=== PATIENT | male | born 1985 | race Caucasian/White ===

== ENCOUNTER → 2017-08-14 | Outpatient (CLI) | payer BC ==
--- NOTE | 2017-08-14 09:45 | Diagnostic Imaging Report ---
PROCEDURE: US Gallbladder. TECHNIQUE: Multiple real-time grayscale images were obtained over the right upper quadrant in various projections. INDICATION: Right upper quadrant abdominal pain Liver is prominent measuring 21 cm in length without evidence of focal hepatic lesion or biliary ductal dilatation. There is an approximately 0.6 cm filling defect within the lumen of the gallbladder without associated shadowing. This may represent polyp. Bowel gas limits evaluation of the extrahepatic biliary tree and pancreas. Right kidney demonstrates no abnormality and there is no evidence of free fluid. IMPRESSION: Mild hepatomegaly with 0.6 cm filling defect within the gallbladder lumen which may represent a polyp. Otherwise no abnormality seen on limited exam. Dictated by: Dictated on workstation # [id number]
== END ==
LOC: RAD 07:43
PROVIDERS: ATTEND Nurse Practitioner
DX: R16.0 Hepatomegaly, not elsewhere classified (principal); R10.11 Right upper quadrant pain
CPT/HCPCS: 76705

== ENCOUNTER 2017-08-23 05:30 | Outpatient (CLI) | payer BC ==
[~2017-08-23] VITALS: Ht 182.9 cm; Wt 133.8 kg
[2017-08-23] MEDS ORDERED: OMEG100032 PO (12:55)
[2017-08-23] MEDS ORDERED: SIMV20TA3 PO (12:55)
[2017-08-24] MEDS ORDERED: ACHD5005 PO (12:55)
[2017-08-24] MEDS ORDERED: DOCU-143 PO (12:55)
== END 2017-08-23 13:00 ==
LOC: PREOP 05:30
PROVIDERS: ATTEND Surgery
DX: Z01.818 Encounter for other preprocedural examination (principal); K82.4 Cholesterolosis of gallbladder; R10.11 Right upper quadrant pain

== ENCOUNTER 2017-08-24 09:08 | Day surgery (SDC) | payer BC ==
[~2017-08-24] VITALS: Ht 182.9 cm; Wt 133.8 kg
[~2017-08-24 09:08] MED LIST: OMEG100032 PO; SIMV20TA3 PO
--- OUTSIDE RECORDS SUMMARY | 2017-08-24 09:13 | XMS REPORT | Continuity of Care Document ---
Author Author [facility] Organization [facility] Address Unknown Phone Unavailable Allergies Active Description Code Type Severity Reaction Onset Reported/Identified Relationship to Patient Clinical Status Yes No Known Drug Allergies [id number] Drug Allergy Unknown N/A 05/10/2013 Medications There is no data. Problems Date Dx Coded Attending Type Code Diagnosis Diagnosed By 08/15/2017 MILADIS SALINAS Ot R10.11 RIGHT UPPER QUADRANT PAIN 08/15/2017 MILADIS SALINAS Ot R16.0 HEPATOMEGALY, NOT ELSEWHERE CLASSIFIED Procedures There is no data. Results There is no data. Encounters ACCT No. Visit Date/Time Discharge Status Pt. Type Provider Facility Loc./Unit Complaint [id number] 08/14/2017 07:43:00 08/14/2017 23:59:59 CLS Outpatient MILADIS SALINAS [facility] RAD RUQ PAIN [id number] 05/10/2013 21:06:00 05/10/2013 21:50:00 DIS Emergency
[2017-08-24 09:30] VITALS: BP 163/86
[2017-08-24] MEDS ORDERED: CATHETER FLUSH 10 ML SYR IV PRN (09:30)
[2017-08-24] MEDS ORDERED: ceFAZolin 2 GM/NS 50 ML IV ONE (09:30)
[2017-08-24] MEDS ORDERED: ceFAZolin 2 GM/50 ML NS 50 ML IV ONE (09:45)
[2017-08-24] MEDS: LACTATED RINGERS 1,000 ML IV PRN ×2 (09:47→11:35)
[2017-08-24] MEDS ORDERED: LIDOCAINE 1% INJ 20 ML (XYLOCAINE) VIAL ONE ×2 (09:57→11:06)
[2017-08-24] MEDS ORDERED: BUPIVACAINE 0.5% 30 ML (SENSORCAINE) VIAL ONE ×2 (09:58→11:06)
[2017-08-24] MEDS ORDERED: LACTATED RINGERS 1,000 ML IV PRN (10:12)
[2017-08-24] MEDS ORDERED: MIDAZOLAM 2 MG/2 ML (VERSED) VIAL IV ONE (10:15)
[2017-08-24] MEDS ORDERED: MIDAZOLAM 2 MG/2 ML (VERSED) VIAL ONE ×2 (10:18→10:42)
[2017-08-24] MEDS ORDERED: DEXAMETHASONE 10 MG/ML (DECADRON) 1 ML VIAL ONE (10:42)
[2017-08-24] MEDS ORDERED: fentaNYL INJECTION 100 MCG/2 ML AMP ONE ×3 (10:42→11:54)
[2017-08-24] MEDS ORDERED: ROCURONIUM 50 MG/5 ML (ZEMURON) VIAL IV ONE (10:42)
[2017-08-24] MEDS ORDERED: ONDANSETRON 4 MG/2 ML (SDV) Z0FRAN ONE ×2 (10:42→12:21)
[2017-08-24] MEDS ORDERED: LIDOCAINE PF 2% 5 ML (XYLOCAINE) VIAL ONE (10:42)
[2017-08-24] MEDS ORDERED: SUCCINYLCHOLINE INJ 100 MG/5 ML SYR ONE (10:42)
[2017-08-24] MEDS ORDERED: proPOfol 200 MG/20 ML (DIPRIVAN) VIAL IV ONE ×2 (10:42→12:35)
[2017-08-24] MEDS ORDERED: SEVOFLURANE (ULTANE) 15 ML INHAL SOLN ONE ×8 (10:42→13:44)
--- NOTE | 2017-08-24 10:57 | Progress Note-Pre Operative ---
Pre-Operative Progress Note H&P Reviewed The H&P was reviewed, patient examined and no changes noted. Date Seen by Provider: Aug 24, 2017 Time Seen by Provider: 10:56 Date H&P Reviewed: Aug 24, 2017 Time H&P Reviewed: 10:56 Pre-Operative Diagnosis: gallbladder polyp JABARI NEWTON DO Aug 24, 2017 10:57
[2017-08-24] MEDS ORDERED: HYDROmorphone (DILAUDID) 2 MG/ML VIAL ONE (12:21)
[2017-08-24] MEDS ORDERED: morphine INJ 10 MG/ML 1ML (SYR OR VIAL) ONE (12:21)
--- NOTE | 2017-08-24 12:53 | Progress Note-Post Operative ---
Post-Operative Progess Note Surgeon (s)/Lock Master (s) Surgeon JABARI NEWTON DO Lock Master: Dr. Benavides Pre-Operative Diagnosis gallbladder polyp Post-Operative Diagnosis same Procedure & Operative Findings Date of Procedure 08/24/17 Procedure Performed/Findings lap desi c ioc Anesthesia Type general Estimated Blood Loss Estimated blood loss (mL): min Specimens/Packing Specimens Removed gallbladder JABARI NEWTON DO Aug 24, 2017 12:53
[2017-08-24] MEDS ORDERED: ACHD5005 PO (12:55)
[2017-08-24] MEDS ORDERED: DOCU-143 PO (12:55)
--- NOTE | 2017-08-24 12:55 | Diagnostic Imaging Report ---
INDICATION: Fluoroscopy. EXAM: Intraoperative cholangiogram. FINDINGS: Fluoroscopy was provided in the OR for intraoperative cholangiogram. Nine seconds of fluoroscopy time was utilized. Images demonstrate contrast being injected via the cystic duct remnant. The intrahepatic and extrahepatic bile ducts are normal caliber. No filling defect is seen to suggest stone. Contrast does flow into the duodenum. IMPRESSION: Fluoroscopy for intraoperative cholangiogram. Dictated by: Dictated on workstation # [id number]
--- NOTE | 2017-08-24 12:57 | Discharge Inst-Simple/Standard ---
Discharge Inst-Standard Discharge Medications New, Converted or Re-Newed RX: RX on Chart Patient Instructions/Follow Up Plan of Care/Instructions/FU: 2 weeks Jaymie Activity as Tolerated: No Discharge Diet: Regular Diet Other Inst to Patient Follow up Appt: Make appointment for 2 weeks. Instructions: No lifting greater than 10 pounds. No strenuous activity. May shower in 24 hours, no tub bath or soaking. Use incentive spirometer at home as directed. No Smoking Skin/Wound Care: You have special glue over incisions, it will fall off on its own. Symptoms to Report: Appetite Changes, Extremity Discoloration, Numbness/Tingling, Swelling Increased , Bleeding Excessive, Eyesight Changes, Pain Increased, Urine Color Change, Constipation(Persistent), Fever over 101 degree F, Pain/Pressure in chest, Urinating Difficulty, Cough Up/Vomit Blood, Heart Beat Irreg/Pounding, Pain/ Pressure in jaw, Vaginal Bleeding Increase, Cramps in feet or legs, Lightheadedness, Pain/Pressure in shoulder, Diarrhea(Persistent), Memory Changes Suddenly, Questions/Concerns, Weight gain consecutive days, Dizziness/ Fainting, Nausea/Vomiting, Shortness of Breath, Weight gain over 2 pounds. If eyes or skin turn yellow notify physician. If questions or concerns contact your physician Or seek help at emergency department. JABARI NEWTON DO Aug 24, 2017 12:57
[2017-08-24] MEDS ORDERED: HYDROcodone/APAP 5 MG/325 MG (LORTAB) TAB PO PRN ×2 (13:00→15:00)
[2017-08-24] MEDS ORDERED: ONDANSETRON 4 MG/2 ML (SDV) Z0FRAN IVP PRN (13:30)
[2017-08-24] MEDS ORDERED: HYDROmorphone (DILAUDID) 2 MG/ML VIAL IVP PRN (13:30)
[2017-08-24] MEDS ORDERED: morphine INJ 10 MG/ML 1ML (SYR OR VIAL) IVP PRN (13:30)
[2017-08-24] MEDS ORDERED: RT-ALBUTEROL SULF 2.5 MG/3 ML PRE-MIX VIAL INH STA (13:42)
[2017-08-24 14:30] VITALS: BP 185/87
[2017-08-24 15:00] VITALS: BP 162/84
[2017-08-24 15:29] VITALS: BP 167/80
[2017-08-24 16:00] VITALS: BP 159/105
--- NOTE | 2017-08-24 22:09 | OPERATIVE REPORT ---
DATE OF SERVICE: 08/24/2017 PREOPERATIVE DIAGNOSIS: Gallbladder polyp. POSTOPERATIVE DIAGNOSIS: Gallbladder polyp. PROCEDURES: Laparoscopic cholecystectomy with intraoperative cholangiogram. SURGEON: Jabari Coon DO. COAL PICKER: Dr. Benavides assisted in retraction, dissection and closure. ANESTHESIA: General. ESTIMATED BLOOD LOSS: Minimal. COMPLICATIONS: None. INDICATIONS: The patient is a 32-year-old male who has been having right upper quadrant abdominal pain. He was explained risks and benefits of procedure and wished to proceed with procedure. Consent was signed in the chart. PROCEDURE: The patient was taken to the operating suite, was prepped and draped in sterile fashion. Surgical pause was performed. Kaltyn technique was used to enter the abdomen just above the umbilicus. A 0 Vicryl suture was placed in a [id number]-gp-[id number] fashion on the fascia. The trocar with a balloon was inserted in the abdomen and pneumoperitoneum was achieved. The gallbladder was located. It was extremely intrahepatic and also the falciform ligament went in partially surrounding the fundus of the gallbladder. Under direct visualization laparoscope, a 5 mm trocar was placed in the subxiphoid region and two 5 mm trocars were placed in the right upper quadrant. Hook cautery was used to try to mobilize the fundus of the gallbladder. Once this was performed, the gallbladder was begun to be elevated. There are multiple adhesions of omentum up against the gallbladder, which then were bluntly taken down. Once the neck of the gallbladder was identified, the cystic artery and cystic duct were then dissected out. Clips were placed on the proximal and distal portion of the cystic artery and this was then transected. This opened up the view of the cystic duct, which was unable to be dissected around. A clip was placed on the distal portion of the cystic duct and the duct was then partially transected and an arrow catheter was inserted and cholangiogram was then performed. There were no filling defects and contrast made its way into the duodenum. On opening the duct, there was also small stone that did come out from the duct . Clips were placed on the proximal portion of the cystic duct and the duct was then transected. Hook cautery was used to dissect the gallbladder from the gallbladder fossa again noting the gallbladder was extremely intrahepatic. Once removed, the gallbladder was placed in an Endobag and removed through the 12 mm trocar site. Copious amount of irrigation was used to irrigate the abdomen. There was a little slight ooze from the gallbladder fossa. Therefore, Surgicel was placed within the gallbladder fossa. Copious amounts of irrigation were used to irrigate the abdomen. The abdomen was then desufflated, the trocars were removed. The 12 mm fascial defect was closed with the 0 Vicryl sutures placed in a caubcg-uq-zxhzh fashion before. The skin was then closed using a 4-0 Monocryl. The area was then washed and dried. Dermabond was placed over the incisions. The patient tolerated the procedure well without any complications and was taken to the recovery room in stable condition. Job ID: [id number] DocumentID: [id number] Dictated Date: 08/24/2017 14:53:45 Metallurgical Specialist Date: 08/24/2017 22:08:31 Dictated By: JABARI COON DO
== END 2017-08-24 16:10 | disposition home or self-care (01) ==
LOC: SDC 09:08
PROVIDERS: ATTEND Surgery
DX: K81.1 Chronic cholecystitis (principal); D13.5 Benign neoplasm of extrahepatic bile ducts; E78.5 Hyperlipidemia, unspecified; F17.210 Nicotine dependence, cigarettes, uncomplicated; E66.01 Morbid (severe) obesity due to excess calories; Z68.41 Body mass index [BMI] 40.0-44.9, adult; Z79.899 Other long term (current) drug therapy
CPT/HCPCS: 87081; 94664

== ENCOUNTER 2018-07-10 11:17 | Outpatient (CLI) | payer BC ==
[~2018-07-10] VITALS: Ht 182.9 cm; Wt 124.7 kg
[~2018-07-10 11:17] MED LIST changes: +ACHD5005 PO; +DOCU-143 PO
[2018-07-12] MEDS ORDERED: ACHD5005 PO (09:12)
[2018-07-12] MEDS ORDERED: DOCU-143 PO (09:12)
== END 2018-07-10 11:33 ==
LOC: PREOP 11:17
PROVIDERS: ATTEND Surgery
DX: Z01.818 Encounter for other preprocedural examination (principal)

== ENCOUNTER 2018-07-12 05:51 | Day surgery (SDC) | payer BC ==
[~2018-07-12] VITALS: Ht 182.9 cm; Wt 125.3 kg
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
--- OUTSIDE RECORDS SUMMARY | 2018-07-12 05:54 | XMS REPORT | Continuity of Care Document ---
Author Author [facility] Organization [facility] Address Unknown Phone Unavailable Care Team Providers Care Neuro Ophthalmologist Name Role Phone NO, LOCAL PHYSICIAN PP Unavailable Insurance Providers Payer Name Policy Number Subscriber Name Relationship Unknown Ciera Morse Advance Directives Directive Response Recorded Date Advance Directives N 05/10/13 9:22pm Problems No Known Problems or Medical conditions. Social History History Response Recorded Date/Time Alcohol Use Occasionally Uses 05/10/13 9: 22pm Recreational Drug Use N 05/10/13 9:22pm Recent Foreign Travel N 05/10/13 9:22pm Allergies, Adverse Reactions, Alerts Allergen Type Severity Reaction Last Updated No Known Drug Allergies 05/10/13 Medications No known medications Response Recorded Date/Time Status not known Unknown Results No Known Relevant Diagnostic Tests, Laboratory Data and/or Discharge Summary. Encounters Encounter Location Date/Time Departed Emergency Room [facility] 9:06pm
[2018-07-12 06:15] VITALS: BP 146/87
[2018-07-12] MEDS ORDERED: ceFAZolin 2 GM IV Premixed 50 ML IV ONE (06:45)
[2018-07-12] MEDS ORDERED: MIDAZOLAM 2 MG/2 ML (VERSED) VIAL IV ONE (07:15)
[2018-07-12] MEDS: LACTATED RINGERS 1,000 ML IV PRN ×2 (07:20→09:22)
[2018-07-12] MEDS ORDERED: LIDOCAINE 1% INJ 20 ML 20 ML VIAL ONE (07:28)
[2018-07-12] MEDS ORDERED: BUPIVACAINE 0.5% 30 ML (SENSORCAINE) VIAL ONE ×2 (07:28→08:51)
[2018-07-12] MEDS ORDERED: fentaNYL INJECTION 100 MCG/2 ML AMP ONE ×2 (07:31→09:02)
[2018-07-12] MEDS ORDERED: MIDAZOLAM 2 MG/2 ML (VERSED) VIAL ONE (07:33)
[2018-07-12 07:37] LABS: BASOPHILS % (AUTO) 0 % (0-10); EOSINOPHILS # (AUTO) 0.3 10^3/uL (0.0-0.3); EOSINOPHILS % (AUTO) 2 % (0-10); HEMATOCRIT 43 % (40-54); HEMOGLOBIN 14.8 G/DL (13.3-17.7); LYMPHOCYTES # (AUTO) 3.1 X 10^3 (1.0-4.0); LYMPHOCYTES % (AUTO) 27 % (12-44); MEAN CORPUSCULAR HEMOGLOBIN 28 PG (25-34); MEAN CORPUSCULAR HGB CONC 34 G/DL (32-36); MEAN CORPUSCULAR VOLUME 80 FL (80-99); MONOCYTES # (AUTO) 0.8 X 10^3 (0.0-1.0); MONOCYTES % (AUTO) 7 % (0-12); NEUTROPHILS # (AUTO) 7.2 X 10^3 (1.8-7.8); NEUTROPHILS % (AUTO) 64 % (42-75); PLATELET COUNT 233 10^3/uL (130-400); RED BLOOD COUNT 5.37 10^6/uL (4.35-5.85); RED CELL DISTRIBUTION WIDTH 14.8 % (10.0-14.5); WHITE BLOOD COUNT 11.3 10^3/uL (4.3-11.0)
--- NOTE | 2018-07-12 07:50 | Progress Note-Pre Operative ---
Pre-Operative Progress Note H&P Reviewed The H&P was reviewed, patient examined and no changes noted. Date Seen by Provider: Jul 12, 2018 Time Seen by Provider: 07:50 Date H&P Reviewed: Jul 12, 2018 Time H&P Reviewed: 07:50 Pre-Operative Diagnosis: incisional hernia JABARI NEWTON DO Jul 12, 2018 07:50
[2018-07-12] MEDS ORDERED: ROCURONIUM 10 MG/ML 5 ML SYRINGE IV ONE (08:51)
[2018-07-12] MEDS ORDERED: LIDOCAINE PF 2% 5 ML (XYLOCAINE) VIAL ONE (08:51)
[2018-07-12] MEDS ORDERED: SUCCINYLCHOLINE INJ 100 MG/5 ML SYR ONE (08:51)
[2018-07-12] MEDS ORDERED: ONDANSETRON 4 MG/2 ML (SDV) Z0FRAN ONE (08:51)
[2018-07-12] MEDS ORDERED: DEXAMETHASONE 10 MG/ML (DECADRON) 1 ML VIAL ONE (08:51)
[2018-07-12] MEDS ORDERED: proPOfol 200 MG/20 ML (DIPRIVAN) VIAL IV ONE (08:51)
[2018-07-12] MEDS ORDERED: GLYCOPYRROLATE 0.2 MG/ML (ROBINUL) 2 ML VIAL ONE (09:00)
[2018-07-12] MEDS ORDERED: NEOSTIGMINE 1 MG/ML 5 ML SYRINGE ONE (09:00)
[2018-07-12] MEDS ORDERED: ACHD5005 PO (09:12)
[2018-07-12] MEDS ORDERED: DOCU-143 PO (09:12)
--- NOTE | 2018-07-12 09:12 | Progress Note-Post Operative ---
Post-Operative Progess Note Surgeon (s)/Top Lift Scourer (s) Surgeon JABARI NEWTON DO Top Lift Scourer: Dr. Benavides Pre-Operative Diagnosis incisional hernia Post-Operative Diagnosis incarcerated incisional hernia Procedure & Operative Findings Date of Procedure 07/12/18 Procedure Performed/Findings laparoscopic incisional hernia repair. Anesthesia Type gen Estimated Blood Loss Estimated blood loss (mL): min Specimens/Packing Specimens Removed na JABARI NEWTON DO Jul 12, 2018 09:12
--- NOTE | 2018-07-12 09:14 | Discharge Inst-Simple/Standard ---
Discharge Inst-Standard Discharge Medications New, Converted or Re-Newed RX: RX on Chart Patient Instructions/Follow Up Plan of Care/Instructions/FU: 3 weeks Coon Activity as Tolerated: No Discharge Diet: Regular Diet Other Inst to Patient Follow up Appt: Make appointment for 3 weeks. Instructions: No lifting greater than 10 pounds. No strenuous activity. May shower in 24 hours, no tub bath or soaking. Use incentive spirometer at home as directed. No Smoking Skin/Wound Care: You have special glue over incision, it will fall off on its own. Symptoms to Report: Appetite Changes, Extremity Discoloration, Numbness/Tingling, Swelling Increased , Bleeding Excessive, Eyesight Changes, Pain Increased, Urine Color Change, Constipation(Persistent), Fever over 101 degree F, Pain/Pressure in chest, Urinating Difficulty, Cough Up/Vomit Blood, Heart Beat Irreg/Pounding, Pain/ Pressure in jaw, Vaginal Bleeding Increase, Cramps in feet or legs, Lightheadedness, Pain/Pressure in shoulder, Diarrhea(Persistent), Memory Changes Suddenly, Questions/Concerns, Weight gain consecutive days, Dizziness/ Fainting, Nausea/Vomiting, Shortness of Breath, Weight gain over 2 pounds If questions or concerns contact your physician Or seek help at emergency department. JABARI COON DO Jul 12, 2018 09:14
[2018-07-12] MEDS ORDERED: morphine INJ 10 MG/ML 1ML (SYR OR VIAL) IVP ONE (09:45)
[2018-07-12] MEDS ORDERED: ONDANSETRON 4 MG/2 ML (SDV) Z0FRAN IVP PRN (09:45)
[2018-07-12] MEDS ORDERED: SEVOFLURANE (ULTANE) 15 ML INHAL SOLN ONE ×2 (09:50)
[2018-07-12 10:45] VITALS: BP 134/73
[2018-07-12 10:50] VITALS: BP 134/73
[2018-07-12 11:15] VITALS: BP 134/73
[2018-07-12] MEDS ORDERED: HYDROcodone/APAP 5 MG/325 MG (LORTAB) TAB PO PRN (11:15)
[2018-07-12 11:45] VITALS: BP 143/70
--- NOTE | 2018-07-12 12:58 | OPERATIVE REPORT ---
DATE OF SERVICE: 07/12/2018 PREOPERATIVE DIAGNOSIS: Incisional hernia. POSTOPERATIVE DIAGNOSIS: Incarcerated incisional hernia. PROCEDURE: Laparoscopic incarcerated incisional hernia repair. SURGEON: Jabari Coon DO CHANGE COORDINATOR: Dr. Benavides, assisted in retraction, dissection and closure. ANESTHESIA: General. ESTIMATED BLOOD LOSS: Minimal. COMPLICATIONS: None. INDICATIONS: The patient is a 33-year-old male with incisional hernia. He understands risks and benefits of procedure and wished to proceed with procedure. Consent was signed in the chart. DESCRIPTION OF PROCEDURE: The patient was taken to the operating suite, was prepped and draped in sterile fashion. Surgical pause was performed. Katlyn technique was used to enter the abdomen in left upper quadrant. A balloon trocar was inserted. Pneumoperitoneum was achieved. Under direct visualization of the laparoscope, a 5 mm trocar was placed in left lower quadrant and a 5 mm trocar was placed in the right lower quadrant. Hernia contents of omental fat stuck in through the incision. This was then began to be dissected down with both blunt and cautery scissors to take down the hernia contents. Once reduced, a stab incision was made over the defect and the defect was closed with an 0 Vicryl and Bipin-Terry. The patient then had an echo 4.5-inch Echo Ventralight mesh inserted in the abdomen and grasped through the stab incision and the balloon was deflated and an outer crown was made with a SecureStrap Tacker. The balloon was then removed and inner crown was made as well. Adequate coverage of the defect was present. Prior to inserting the mesh, the falciform ligament had to be partially taken down with a scissor cautery. The abdomen was then desufflated, the trocars were removed. The fascial defect of the 12 mm trocar site was closed with 0 Vicryl. The skin was then closed using 4-0 Monocryl. The area was then washed and dried and Skin Affix was placed over the incisions. The patient tolerated procedure well without any complications. He was sent to recovery room in stable condition. Job ID: [id number] DocumentID: [id number] Dictated Date: 07/12/2018 09:19:42 Manager Competitive Intelligence Date: 07/12/2018 12:58:19 Dictated By: JABARI COON DO
--- NOTE | 2018-07-12 15:02 | Anesthesia-General Post-Op ---
General Patient Condition Mental Status/LOC: Same as Preop Cardiovascular: Satisfactory Nausea/Vomiting: Absent Respiratory: Satisfactory Pain: Controlled Complications: Absent Post Op Complications Complications None Follow Up Care/Instructions Patient Instructions None needed. Anesthesia/Patient Condition Patient Condition Patient is doing well, no complaints, stable vital signs, no apparent adverse anesthesia problems. No complications reported per nursing. D/C home per [facility] Criteria: Yes GILBERT GREEN CRNA Jul 12, 2018 15:02
== END 2018-07-12 12:10 | disposition home or self-care (01) ==
LOC: SDC 05:51
PROVIDERS: ATTEND Surgery
DX: K43.0 Incisional hernia with obstruction, without gangrene (principal); E78.5 Hyperlipidemia, unspecified; F17.210 Nicotine dependence, cigarettes, uncomplicated; E66.9 Obesity, unspecified; Z68.37 Body mass index [BMI] 37.0-37.9, adult
CPT/HCPCS: 36415; 85025; 87081; 94664

== ENCOUNTER → 2022-04-11 | Outpatient (REF) ==
[~2022-04-11] MED LIST changes: +SIMV20TA26 PO; -SIMV20TA3 PO
--- NOTE | 2022-04-11 15:34 | Diagnostic Imaging Report ---
Indication: Left shoulder injury and pain. Time of Exam: 3:25 PM 3 views left shoulder were obtained. Glenohumeral and acromioclavicular alignment are normal. Acromiohumeral space is normal. No fracture or dislocation is identified. IMPRESSION: No acute abnormality is detected. Dictated by: Dictated on workstation # [id number]
== END ==
LOC: OCC 15:14
PROVIDERS: ATTEND Family Medicine
DX: M25.512 Pain in left shoulder (principal)
CPT/HCPCS: 73030

== ENCOUNTER → 2022-05-05 | Outpatient (CLI) | payer BC, OTHER | LOC: ORTHO 11:47 | PROVIDERS: ATTEND Orthopaedic Surgery | DX: S46.012A Strain of muscle(s) and tendon(s) of the rotator cuff of left shoulder, initial encounter (principal); X58.XXXA Exposure to other specified factors, initial encounter | CPT/HCPCS: 99203 ==

== ENCOUNTER 2022-05-19 05:30 | Outpatient (CLI) | payer OTHER ==
[~2022-05-19] VITALS: Ht 182.8 cm; Wt 117.3 kg
== END 2022-05-19 09:50 | disposition home or self-care (01) ==
LOC: PREOP 05:30
PROVIDERS: ATTEND Orthopaedic Surgery
DX: Z01.818 Encounter for other preprocedural examination (principal)

== ENCOUNTER 2022-05-23 07:24 | Day surgery (SDC) | payer OTHER, BC ==
[~2022-05-23] VITALS: Ht 182.8 cm; Wt 117.3 kg
[2022-05-23] VITALS (11 sets, daily range): BP systolic 111–144; BP diastolic 31–93
[2022-05-23] MEDS ORDERED: ceFAZolin INJECTION 2,000 MG in NS (IVPB) 50 ML IV ONE (07:30)
[2022-05-23] MEDS: LACTATED RINGERS 1,000 ML IV PRN ×2 (07:46→12:42)
[2022-05-23] MEDS ORDERED: fentaNYL INJ 100 MCG/2 ML AMP ONE (08:02)
[2022-05-23] MEDS ORDERED: ROPIVACAINE 5MG/ML 30ML VIAL ONE (08:02)
[2022-05-23] MEDS ORDERED: MIDAZOLAM 2 MG/2 ML (VERSED) VIAL ONE (08:02)
[2022-05-23] MEDS ORDERED: LIDOCAINE PF 2% 5 ML (XYLOCAINE) VIAL ONE (08:04)
--- NOTE | 2022-05-23 08:28 | Progress Note-Pre Operative ---
Pre-Operative Progress Note Date of Available H&P: May 05, 2022 Date H&P Reviewed: May 10, 2022 Time H&P Reviewed: 08:25 History & Physical: H&P Reviewed, Patient Examed, No changes noted Pre-Operative Diagnosis: Left Shoulder Rotator Cuff Tear PETR ROCHA MD May 23, 2022 08:28
[2022-05-23] MEDS ORDERED: EPINEPHrine INJECTION 1 MG/ML AMP ONE (09:04)
[2022-05-23] MEDS ORDERED: SEVOFLURANE (ULTANE) 15 ML INHAL SOLN ONE ×2 (09:09→11:50)
[2022-05-23] MEDS ORDERED: ONDANSETRON 4 MG/2 ML (SDV) Z0FRAN ONE (09:09)
[2022-05-23] MEDS ORDERED: proPOfol 200 MG/20 ML (DIPRIVAN) VIAL IV ONE (09:09)
[2022-05-23] MEDS ORDERED: ROCURONIUM 10 MG/ML 5 ML SYRINGE IV ONE (09:09)
--- NOTE | 2022-05-23 11:38 | Operative Report - Ortho ---
Operative Report Surgeon (s)/Cannery Worker (s) Surgeon PETR ROCHA MD Cannery Worker n/a Pre-Operative Diagnosis Left Shoulder Rotator Cuff Tear Post-Operative Diagnosis same Operative Report Date of Procedure: May 23, 2022 Name of Procedure Performed: Left Shoulder Scope with Rotator Cuff Repair Description & Findings After obtaining informed consent and marking the patient in the preoperative holding area, patient received regional anesthesia. Patient did receive intravenous antibiotics. Patient was taken to the operating room. General anesthesia was induced and the patient was placed in the lateral decubitus position with the left side up. Left upper extremity was prepped and draped in the usual sterile fashion. Surgical timeout was taken. Posterior portal was established. Diagnostic glenohumeral arthroscopy was performed with the following findings: biceps tendon was intact, intact articular cartilage, no loose bodies in the axillary pouch, complete tear of the rotator cuff at the footprint, intact labrum. Anterior portal was established and shaver was inserted. The undersurface of the cuff tear was debrided to a stable border. Probe was inserted and the biceps was inspected and was intact. Instruments were then taken up into the subacromial space. Lateral portal was established. Shaver was used to remove bursal tissue. Rotator cuff footprint was debrided to bleeding bone. Edge of the rotator cuff was debrided. Two medial row anchors were then placed. Tape sutures from each anchor were passed through the cuff using a needle suture passer. A stay suture from the posterior medial anchor was then passed through a posterior dog ear of the tear. One limb from each medial anchor was then taken to the lateral portal. Suture tails were passed through and punched into a lateral socket. Tension as applied to the sutures and the lateral anterior anchor was deployed. Tails of the suture were cut. A second Horacio two-anchor was then placed posterior to the first with final 2 limbs of suture and the stay suture of the dog ear was also passed through; punched, tensioned, and the lateral posterior anchor was deployed. Tails were cut. Rotator cuff repair was viewed from the posterior and lateral portals and demonstrated good approximation and compression to the footprint. Instruments were removed. Incisions were closed with 3-0 nylon sutures. Wounds were dressed with xeroform, 4x4s, ABD, and tape. Patient was placed in an abduction sling postoperatively. Anesthesia Type General plus regional Estimated Blood Loss minimal Specimen(s) collected/removed None PETR ROCHA MD May 23, 2022 11:38
[2022-05-23] MEDS ORDERED: OXC5T PO (11:40)
--- NOTE | 2022-05-23 12:09 | Anesthesia-General Post-Op ---
General Patient Condition Mental Status/LOC: Same as Preop Cardiovascular: Satisfactory Nausea/Vomiting: Absent Respiratory: Satisfactory Pain: Controlled Complications: Absent Post Op Complications Complications None Follow Up Care/Instructions Patient Instructions None needed. Anesthesia/Patient Condition Patient Condition Patient is doing well, no complaints, stable vital signs, no apparent adverse anesthesia problems. No complications reported per nursing. GUERITA BLAS CRNA May 23, 2022 12:09
[2022-05-23] MEDS ORDERED: morphine INJ 10 MG/ML 1ML (SYR OR VIAL) IVP ONE (12:15)
[2022-05-23] MEDS ORDERED: ONDANSETRON 4 MG/2 ML (SDV) Z0FRAN IVP PRN (12:15)
== END 2022-05-23 14:30 | disposition home or self-care (01) ==
LOC: SDC 07:24
PROVIDERS: ATTEND Orthopaedic Surgery
DX: S46.012A Strain of muscle(s) and tendon(s) of the rotator cuff of left shoulder, initial encounter (principal); E66.9 Obesity, unspecified; Z68.35 Body mass index [BMI] 35.0-35.9, adult; X50.9XXA Other and unspecified overexertion or strenuous movements or postures, initial encounter; Z87.891 Personal history of nicotine dependence
CPT/HCPCS: 29827; 87081; C1713

== ENCOUNTER → 2022-06-07 | Outpatient (CLI) | payer OTHER, BC ==
[~2022-06-07] MED LIST changes: +OXC5T PO
== END ==
LOC: ORTHO 09:45
PROVIDERS: ATTEND Orthopaedic Surgery
DX: Z47.89 Encounter for other orthopedic aftercare (principal); E78.5 Hyperlipidemia, unspecified; E66.9 Obesity, unspecified

== ENCOUNTER → 2022-06-22 | Outpatient (CLI) | payer OTHER, BC | LOC: ORTHO 11:30 | PROVIDERS: ATTEND Orthopaedic Surgery | DX: Z48.89 Encounter for other specified surgical aftercare (principal) ==

== ENCOUNTER → 2022-07-21 | Outpatient (CLI) | payer OTHER, BC | LOC: ORTHO 08:36 | PROVIDERS: ATTEND Orthopaedic Surgery | DX: Z47.89 Encounter for other orthopedic aftercare (principal); E78.5 Hyperlipidemia, unspecified; E66.9 Obesity, unspecified ==

== ENCOUNTER → 2022-08-24 | Outpatient (CLI) | payer OTHER, BC | LOC: ORTHO 08:42 | PROVIDERS: ATTEND Orthopaedic Surgery | DX: Z48.89 Encounter for other specified surgical aftercare (principal); E78.5 Hyperlipidemia, unspecified; E66.9 Obesity, unspecified; Z72.0 Tobacco use ==

== ENCOUNTER → 2022-09-21 | Outpatient (CLI) | payer OTHER, BC | LOC: ORTHO 08:53 | PROVIDERS: ATTEND Orthopaedic Surgery | DX: Z98.890 Other specified postprocedural states (principal) | CPT/HCPCS: 99213 ==

== ENCOUNTER → 2022-10-20 | Outpatient (CLI) | payer OTHER, BC | LOC: ORTHO 08:49 | PROVIDERS: ATTEND Orthopaedic Surgery | DX: Z98.890 Other specified postprocedural states (principal); E78.5 Hyperlipidemia, unspecified; E66.9 Obesity, unspecified; Z72.0 Tobacco use | CPT/HCPCS: 99213 ==

== ENCOUNTER → 2022-11-29 | Outpatient (CLI) | payer OTHER, BC | LOC: ORTHO 10:40 | PROVIDERS: ATTEND Orthopaedic Surgery | DX: Z98.890 Other specified postprocedural states (principal) | CPT/HCPCS: 99213 ==